=== PATIENT | female | born 1995 | race African-American/Black ===

== ENCOUNTER 2020-07-25 09:30 | Emergency (ER) | payer SELFPAY ==
[~2020-07-25] VITALS: Ht 149.9 cm; Wt 56.8 kg
[2020-07-25 09:52] LABS: BILIRUBIN,URINE NEGATIVE (NEG); CLARITY,URINE CLOUDY; COLOR,URINE YELLOW; NITRITE,URINE NEGATIVE (NEG); PROTEIN,URINE 30 mg/dL (NEG-TRACE); UROBILINOGEN,URINE 0.2 mg/dL (0.2 mg/dL)
[2020-07-25 10:00] LABS: BACTERIA,URINE MODERATE /HPF (0-FEW); WBC,URINE 20-40 /HPF (0-4)
--- NOTE | 2020-07-25 10:05 | PHYS DOC ---
Past Medical History Past Medical History: No Pertinent History Past Surgical History: Smoking Status: Never Smoker Alcohol Use: None General Adult EDM: Chief Complaint: PAIN ON URINATION HPI: HPI: 25-year-old female presented [facility] department today with lower abdominal pain. Her pain started earlier this week Tuesday or Tuesday. Its a sharp shooting pain intermittent without alleviating factors. She has had some dysuria she denies polyuria. She has not had a urinary tract infection before. She denies any hematuria. She denies changes in her vaginal discharge. She denies fevers or chills. The pain is nonradiating. Review of systems is negative for nausea vomiting chest pain shortness of breath fevers or chills. All other review of systems negative. ED course: 25-year-old female presenting with abdominal pain in the suprapubic region. On examination the abdomen is soft and nontender. Nondistended. Nontender appendix. CT shows probable ovarian cysts. No acute abnormalities otherwise. Blood work shows a leukocytosis. Chemistry panel unremarkable. Lactate within normal limits. Urinalysis suggestive of UTI. We will discharge the patient home on Bactrim to follow-up with her doctor tomorrow for repeat abdominal exam. She is to return for any worsening symptoms or any concerns. Repeat abdominal exam is reassuring soft and nontender. During discharge instructions the patient was resting comfortably without any grimacing or distress. She reports her pain is improving. Heart Score: Risk Factors: Risk Factors: DM, Current or recent (<one month) smoker, HTN, HLP, family history of CAD, obesity. Risk Scores: Score 0 - 3: 2.5% MACE over next 6 weeks - Discharge Home Score 4 - 6: 20.3% MACE over next 6 weeks - Admit for Clinical Observation Score 7 - 10: 72.7% MACE over next 6 weeks - Early Invasive Strategies Allergies: Allergies: Allergies Coded Allergies Type Severity Reaction Last Updated Verified No Known Drug Allergies 07/25/20 No Physical Exam: PE: Constitutional: Well developed, well nourished, no acute distress, non-toxic appearance. [] HENT: Normocephalic, atraumatic, bilateral external ears normal, oropharynx moist, no oral exudates, nose normal. [] Eyes: PERRLA, EOMI, conjunctiva normal, no discharge. [] Neck: Normal range of motion, no tenderness, supple, no stridor. [] Cardiovascular:Heart rate regular rhythm, no murmur [] Lungs & Thorax: Bilateral breath sounds clear to auscultation [] Abdomen: Bowel sounds normal, soft, no tenderness, no masses, no pulsatile masses. [] Negative McBurney's point. Negative Ervin sign. No rebound tenderness or guarding. Skin: Warm, dry, no erythema, no rash. [] Back: No tenderness, no CVA tenderness. [] Extremities: No tenderness, no cyanosis, no clubbing, ROM intact, no edema. [] Neurologic: Alert and oriented X 3, normal motor function, normal sensory f unction, no focal deficits noted. [] Psychologic: Affect normal, judgement normal, mood normal. [] Current Patient Data: Labs: Laboratory Tests Test 07/25/20 09:38 07/25/20 09:42 Urine Collection Type Void Urine Color Yellow Urine Clarity Cloudy Urine pH 8.0 (<5.0-8.0) Urine Specific [place] 1.020 (1.000-1.030) Urine Protein 30 mg/dL (NEG-TRACE) Urine Glucose (UA) Negative mg/dL (NEG) Urine Ketones (Stick) Negative mg/dL (NEG) Urine Blood Moderate (NEG) Urine Nitrite Negative (NEG) Urine Bilirubin Negative (NEG) Urine Urobilinogen Dipstick 0.2 mg/dL (0.2 mg/dL) Urine Leukocyte Esterase Large (NEG) Urine RBC 3-5 /HPF (0-2) Urine WBC 20-40 /HPF (0-4) Urine Squamous Epithelial Cells Occ /LPF Urine Bacteria Moderate /HPF (0-FEW) POC Urine HCG, Qualitative Hcg negative (Negative) Vital Signs: Vital Signs Date Time Temp Pulse Resp B/P (MAP) Pulse Ox O2 Delivery O2 Flow Rate FiO2 07/25/20 09:44 98.3 111 16 124/73 (90) 97 Room Air 98.3 EKG: EKG: [] Radiology/Procedures: Radiology/Procedures: [] Course & Med Decision Making: Course & Med Decision Making Pertinent Labs and Imaging studies reviewed. (See chart for details) [] Dragon Disclaimer: Dragon Disclaimer: This electronic medical record was generated, in whole or in part, using a voice recognition dictation system. Departure Departure Impression: Primary Impression: UTI (urinary tract infection) Additional Impression: Ovarian cyst Disposition: 01 DC HOME SELF CARE/HOMELESS Condition: STABLE Referrals: NO PCP (PCP) Patient Instructions: Abdominal Pain Additional Instructions: Follow-up with your primary physician in 1 to 2 days. Return to the emergency department if you have any new or concerning findings. Scripts Sulfamethoxazole/Trimethoprim (BACTRIM DS TABLET) 1 Each Tablet 1 TAB PO BID for 7 Days, #14 TAB 0 Refills Prov: PAKO FOX MD 07/25/20 PAKO FOX MD Jul 25, 2020 10:05
[2020-07-25] MEDS ORDERED: IV NORMAL SALINE 1000ML BAG 1,000 ML IV ONE (10:30)
[2020-07-25 10:43] LABS: BASO # 0.1 x10^3/uL (0.0-0.2); BASO % 0 % (0-3); EOS % 0 % (0-3); HEMATOCRIT 34.7 % (36.0-47.0); HEMOGLOBIN 11.3 g/dL (12.0-15.5); LYMPH # 1.8 x10^3/uL (1.0-4.8); LYMPH % 11 % (24-48); MEAN CORPUSCULAR HEMOGLOBIN 27 pg (25-35); MEAN CORPUSCULAR HGB CONC 33 g/dL (31-37); MEAN CORPUSCULAR VOLUME 84 fL (79-100); MONO # 0.9 x10^3/uL (0.0-1.1); MONO % 6 % (0-9); NEUT # 13.7 x10^3/uL (1.8-7.7); NEUT % 83 % (31-73); PLATELET COUNT 222 x10^3/uL (140-400); RED BLOOD COUNT 4.13 x10^6/uL (3.50-5.40); RED CELL DISTRIBUTION WIDTH 16.3 % (11.5-14.5); WHITE BLOOD COUNT 16.6 x10^3/uL (4.0-11.0)
[2020-07-25] MEDS ORDERED: cefTRIAXone IV Push 1 GM VIAL. IVP ONE (10:45)
[2020-07-25] MEDS ORDERED: CONTRAST GIVEN. MC PRN (11:00)
[2020-07-25] MEDS ORDERED: KETOROLAC 30 MG/ML VIAL. IV ONE (11:00)
[2020-07-25] MEDS ORDERED: IOHEXOL 300 MG/ML 100ML VIAL. IV ONE (11:00)
[2020-07-25 11:17] LABS: % BANDS 1 % (0-9); % LYMPHS 12 % (24-48); % MONOS 4 % (0-10); % SEGS 83 % (35-66); PLT ESTIMATE ADEQUATE (ADEQUATE); TOXIC VACUOLATION SLIGHT
[2020-07-25 11:32] LABS: CALCIUM 8.9 mg/dL (8.5-10.1); CREATININE 0.6 mg/dL (0.6-1.0); GFR 146.2; POTASSIUM 3.7 mmol/L (3.5-5.1)
[2020-07-25 11:37] LABS: ALBUMIN 3.4 g/dL (3.4-5.0); ALBUMIN/GLOBULIN RATIO 0.9 (1.0-1.7); TOTAL BILIRUBIN 0.3 mg/dL (0.2-1.0); TOTAL PROTEIN 7.1 g/dL (6.4-8.2)
--- NOTE | 2020-07-25 12:29 | RAD ---
CT scan of the abdomen and pelvis with contrast 07/25/2020 CLINICAL HISTORY: Abdominal pain. TECHNIQUE: After the intravenous administration of 75 cc of Omnipaque 300, contiguous, 5 mm axial sections were obtained through the abdomen and pelvis. One or more of the following individualized dose reduction techniques were utilized for this study: 1. Automated exposure control. 2. Adjustment of the mA and/or kV according to patient size. 3. Use of iterative reconstruction technique. FINDINGS: Images through the lung bases are within normal limits. The liver, spleen, pancreas, adrenal glands and kidneys are within normal limits. The abdominal aorta tapers normally. The gallbladder is contracted. No free fluid or free air is seen within the abdomen. Air and stool are seen throughout the colon. There is no evidence of bowel obstruction. The appendix is well-visualized and is within normal limits. Images through the pelvis demonstrate the urinary bladder distended with urine. A 3 mm punctate calcification is seen within the inferior aspect of the anterior uterus near the endometrium which may represent a calcified fibroid. Prominent follicles are seen involving both ovaries. A somewhat oval-shaped low-attenuation lesion is seen involving the left ovary which measures 4.2 cm in size. An oval-shaped low-attenuation lesion is seen involving the right ovary which measures 4.3 cm in size. These likely represent cysts. No free fluid is seen. Minimal S-shaped curvature of the thoracolumbar spine is noted. IMPRESSION: 1. Probable ovarian cysts, right greater than left. These measure 4.3 and 4.2 cm in size. 2. No additional acute abnormality is seen. Electronically signed by: Abraham Chapman MD (07/25/2020 12:26 PM) [place] [id number]
[2020-07-25 12:30] VITALS: BP 128/79
[2020-07-25] MEDS ORDERED: SULF1TAB24 PO (12:35)
== END 2020-07-25 12:50 | disposition home or self-care (01) ==
LOC: ER 09:30
DX: N39.0 Urinary tract infection, site not specified (principal); N83.202 Unspecified ovarian cyst, left side; N83.201 Unspecified ovarian cyst, right side
CPT/HCPCS: 36415; 74177; 80053; 81001; 81025; 83605; 83690; 85007; 85025; 87086; 96361; 96374; 96375; 99285; J0696; J1885; J7030; Q9967